=== PATIENT | male | born 1965 | race Caucasian/White ===

== ENCOUNTER → 2021-12-18 | Day surgery (SDC) | payer OTHER ==
[~2021-12-18] VITALS: Ht 177.8 cm; Wt 89.3 kg
[~2021-12-18] MED LIST: FLOMAX 0.4 MG0.4 MG PO; HCTZ25 MG PO; NORVASC5 MG PO; PRINIVIL20 MG PO; TRAZODONE 100M100 MG PO; VITAMIN B12 IJ
[2021-12-18 09:54] LABS: HCT 42.1 % (42.0-52.0); MCH 29.2 pg (25.0-31.0); MCHC 33.3 g/dL (32.0-36.0); MCV 87.9 fL (78.0-100.0); MPV 11.3 fL (6.0-9.5); RBC 4.79 M/uL (4.70-6.00); RDW 13.2 % (11.5-14.0); WBC 6.9 K/uL (4.0-10.5)
[2021-12-18 10:03] LABS: ALBUMIN 3.8 g/dL (3.4-5.0); BILIRUBIN - TOTAL 0.3 mg/dL (0.2-1.0); BUN/CREAT RATIO (CALC) 17.1 RATIO; CREATININE 1.17 mg/dL (0.67-1.17); GLOBULIN (CALCULATION) 3.3 g/dL; POTASSIUM 4.3 mmol/L (3.5-5.1); TOTAL PROTEIN 7.1 g/dL (6.4-8.2)
== END | disposition home or self-care (01) ==
LOC: FAS 08:47
PROVIDERS: Surgery
DX: K63.89 Other specified diseases of intestine (principal); K94.13 Enterostomy malfunction
CPT/HCPCS: 36415; 80053; J0694; J2250; J2704; J3010; J7120